=== PATIENT | female | born 1990 | race African-American/Black ===

== ENCOUNTER → 2023-07-20 | Emergency (ER) | payer SELFPAY ==
[~2023-07-20] VITALS: Ht 157.5 cm; Wt 60.0 kg
[~2023-07-20] MED LIST: CEPHALEXIN 250MG CAPSULE PO SCH
[2023-07-20] MEDS: HALOPERIDOL LACTATE 5MG/ML VIAL IM ONE (06:47)
[2023-07-20] MEDS: DIPHENHYDRAMINE 50MG/ML VIAL IM ONE (06:47)
[2023-07-20 07:58] LABS: HEMATOCRIT. 41.4 % (36.0-48.0); MEAN CORPUSCULAR HEMOGLOBIN 29.8 pg (28.0-32.0); MEAN CORPUSCULAR HGB CONC 33.9 g/dL (31.0-37.0); MEAN PLATELET VOLUME 9.1 fl (7.4-10.4); PLATELET 207 x1000/uL (130-400); RED CELL DISTRIBUTION WIDTH 12.2 % (11.6-14.6); WHITE BLOOD COUNT 14.6 x1000/uL (4.5-11.0)
[2023-07-20 08:02] LABS: CHLORIDE 111 mEq/L (98-107); DIFFERENTIAL COMMENT 1; POTASSIUM 4.2 mEq/L (3.5-5.1); SODIUM 141 mEq/L (136-145)
[2023-07-20 08:03] LABS: CALCIUM 9.2 mg/dL (8.7-10.4); CARBON DIOXIDE 24 mEq/L (21-32)
[2023-07-20 08:08] LABS: CREATININE 1.1 mg/dL (0.6-1.0); GLUCOSE 85 mg/dL (70-105); UREA NITROGEN BLOOD 9 mg/dL (9-23)
[2023-07-20 08:09] LABS: ETHANOL BLOOD < 10 mg/dL (<10); HCG SCREEN NEGATIVE; TROPONIN I HIGH SENSITIVITY 4 ng/L (3.0-34)
[2023-07-20 08:10] LABS: ACETAMINOPHEN < 2 ug/mL (10-30); ALANINE AMINOTRANSFERASE 15 IU/L (10-49); ALBUMIN 4.5 g/dL (3.2-4.8); ASPARTATE AMINOTRANSFERASE 32 IU/L (<34); CREATINE KINASE 724 IU/L (34-145)
[2023-07-20 08:11] LABS: BILIRUBIN TOTAL 0.7 mg/dL (0.1-1.0); PROTEIN TOTAL 7.9 g/dL (6.0-8.3)
[2023-07-20 08:13] LABS: THYROID STIMULATING HORMONE < 0.10 uIU/mL (0.55-4.78)
[2023-07-20] MEDS: MIDAZOLAM HCL 2 MG/2 ML VIAL IM ONE ×2 (10:00→13:25)
[2023-07-20 10:30] LABS: CLARITY URINE CLOUDY (CLEAR); COLOR URINE YELLOW (YELLOW); GLUCOSE URINE NEGATIVE (NEGATIVE); KETONES URINE 1+ (NEGATIVE); LEUKOCYTE ESTERASE URINE 2+ (NEGATIVE); NITRITE URINE NEGATIVE (NEGATIVE); OCCULT BLOOD URINE NEGATIVE (NEGATIVE); PH URINE 5.5 (4.5-8.0); PROTEIN URINE NEGATIVE (NEGATIVE)
[2023-07-20 10:54] LABS: MUCUS URINE 2+ /lpf (< = 2+); SQUAMOUS EPITHELIAL CELL URINE 2+ /lpf (RARE/1+)
[2023-07-20 10:56] LABS: BACTERIA URINE 2+; RBC URINE 0-2 /hpf (0-2); TRICHOMONAS URINE 1+
[2023-07-20 10:58] LABS: *AMPHETAMINES SCREEN URINE NEGATIVE (NEGATIVE); *BARBITURATES SCREEN URINE NEGATIVE (NEGATIVE); *BENZODIAZEPINES SCREEN URINE PRESUMPTIVE POSITIVE (NEGATIVE); *COCAINE SCREEN URINE NEGATIVE (NEGATIVE); CANNABINOID URINE SCREEN NEGATIVE (NEGATIVE); ECSTASY MDMA SCREEN URINE NEGATIVE (NEGATIVE); METHADONE URINE SCREEN NEGATIVE (NEGATIVE); OPIATES URINE SCREEN NEGATIVE (NEGATIVE); PHENCYCLIDINE URINE SCREEN NEGATIVE (NEGATIVE)
[2023-07-20 11:50] LABS: PLATELET ESTIMATE NORMAL
[2023-07-20] MEDS: ZIPRASIDONE MESYLATE 20MG/VIAL IM ONE (17:24)
[2023-07-20] MEDS: OLANZAPINE 10 MG/VIAL IM ONE (23:15)
[2023-07-20] MEDS: LORAZEPAM 2MG/ML INJ IM ONE (23:15)
[2023-07-21 13:32] LABS: CREATINE KINASE 827 IU/L (34-145)
[2023-07-21] MEDS: ZIPRASIDONE MESYLATE 20MG/VIAL IM ONE (14:15)
[2023-07-21] MEDS: LORAZEPAM 2MG/ML INJ IM ONE (14:15)
[2023-07-21] MEDS: OLANZAPINE 5MG TABLET ODT PO SCH (17:45)
[2023-07-21] MEDS: ACETAMINOPHEN 325MG TABLET PO ONE (18:32)
[2023-07-21] MEDS: DIPHENHYDRAMINE 50MG/ML VIAL IM PRN (19:28)
[2023-07-22] MEDS: ACETAMINOPHEN 325MG TABLET PO ONE ×2 (12:17→19:14)
[2023-07-22 12:52] LABS: CREATINE KINASE 749 IU/L (34-145)
[2023-07-22] MEDS: CEPHALEXIN 250MG CAPSULE PO SCH (21:26)
[2023-07-22] MEDS: LORAZEPAM 1MG TABLET PO ONE (21:43)
[2023-07-23 02:47] VITALS: O2SAT 99
[2023-07-23 06:54] VITALS: BP 113/71; PULSE 72; RESP 17; TEMP 97.7
== END ==
LOC: ER 05:54
DX: R45.1 Restlessness and agitation (principal); F15.10 Other stimulant abuse, uncomplicated
CPT/HCPCS: 80053; 80305; 81003; 80307; 80329; 80320; 82550; 84703; 84443; 85025; 84484; 36415; 96372; 99291; J3490; J1200; J1630; J2060; J2250; J3486; Z7610 ×2; G0480